=== PATIENT | female | born 1965 | race Caucasian/White ===

== ENCOUNTER 2016-12-18 05:26 | Inpatient (IN) | payer MEDICAID ==
[2016-12-18] MEDS ORDERED: Gabapentin 400 MG Cap PO ONE (05:30)
[2016-12-18] MEDS ORDERED: Scopolamine 1.5 MG Transdermal Patch TRDERM SCH (05:30)
[2016-12-18] MEDS ORDERED: Acetaminophen 500 MG Tab PO ONE (05:30)
[2016-12-18] MEDS ORDERED: Celecoxib 200 MG Cap PO ONE (05:30)
[2016-12-18] MEDS ORDERED: Dextrose 5%-Lactated Ringers 1,000 ML IV SCH (06:30)
[2016-12-18] MEDS ORDERED: cefOXitin 2 GM Vial ONE (06:38)
[2016-12-18] MEDS ORDERED: Albuterol/Ipratropium 3.0-0.5 MG/3 ML Neb Soln NEB ONE (07:00)
[2016-12-18] MEDS ORDERED: Neostigmine Methylsulfate 1 MG/ML 5 ML Syringe ONE (07:10)
[2016-12-18] MEDS ORDERED: Rocuronium 50 MG/5 ML Vial ONE (07:10)
[2016-12-18] MEDS ORDERED: Glycopyrrolate 0.2 MG/ML 5 ML MDV ONE (07:10)
[2016-12-18] MEDS ORDERED: Propofol 200 MG/20 ML SDV ONE (07:10)
[2016-12-18] MEDS ORDERED: Ondansetron 4 MG/2 ML SDV ONE (07:10)
[2016-12-18] MEDS ORDERED: Succinylcholine 200 MG/10 ML MDV ONE (07:10)
[2016-12-18] MEDS ORDERED: Dexamethasone 4 MG/ML SDV ONE (07:10)
[2016-12-18] MEDS ORDERED: Lactated Ringers 1,000 ML ONE (07:10)
[2016-12-18] MEDS ORDERED: cefOXitin 2 GM in Sodium Chloride 0.9% 50 ML IV ONE (07:30)
[2016-12-18] MEDS ORDERED: Ropivacaine 58 ML, Dexamethasone 8 MG, EPINEPHrine 0.4 MG, Sodium Chloride 0.9% 19.6 ML NERVRT SCH ×4 (07:45)
[2016-12-18] MEDS ORDERED: Ketamine 500 MG/5 ML MDV IV ONE (07:45)
[2016-12-18] MEDS ORDERED: Lidocaine 2% 100 MG/5 ML Syringe IVPUSH ONE (07:45)
[2016-12-18] MEDS ORDERED: hydrOXYzine HCl 100 MG/2 ML SDV IM ONE (09:29)
[2016-12-18] MEDS ORDERED: fentaNYL 100 MCG/2 ML SDV IVPUSH ONE (09:29)
[2016-12-18] MEDS ORDERED: Ondansetron 4 MG/2 ML SDV IVPUSH ONE (09:29)
[2016-12-18] MEDS: Lidocaine 0.4%/D5W 2 GM/500 ML BAG IV SCH (11:18)
[2016-12-18] MEDS: cefOXitin 2 GM in Sodium Chloride 0.9% 50 ML IV SCH ×2 (11:45→18:03)
[2016-12-18] MEDS ORDERED: hydrOXYzine HCl 100 MG/2 ML SDV IM PRN (12:00)
[2016-12-18] MEDS ORDERED: diphenhydrAMINE 50 MG/ML SDV IVPUSH PRN (12:00)
[2016-12-18] MEDS ORDERED: Metoclopramide 10 MG/2 ML SDV IVPUSH PRN (12:00)
[2016-12-18] MEDS ORDERED: Albuterol/Ipratropium 3.0-0.5 MG/3 ML Neb Soln INH PRN (12:00)
[2016-12-18] MEDS ORDERED: Labetalol 20 MG/4 ML Syringe IVPUSH PRN (12:00)
[2016-12-18] MEDS ORDERED: Ondansetron 4 MG/2 ML SDV IVPUSH PRN (12:00)
[2016-12-18] MEDS: Dextrose 5%-Lactated Ringers 1,000 ML IV SCH (13:23)
[2016-12-18] MEDS: Gabapentin 250 MG/5 ML Solution ML 470 ML Bottle PO SCH ×2 (13:53→21:28)
[2016-12-18] MEDS: Pantoprazole 40 MG Vial IVPUSH SCH (13:56)
[2016-12-18] MEDS: Albuterol/Ipratropium 3.0-0.5 MG/3 ML Neb Soln INH SCH ×2 (14:30→21:28)
[2016-12-18] MEDS: Acetaminophen Soln 650 MG/20.3 ML UD Cup PO SCH ×2 (15:09→21:29)
[2016-12-18] MEDS: Heparin Sodium 5,000 Units/ML Vial SUBCUT SCH (17:57)
[2016-12-18] MEDS: MVI, Adult with Vitamin K 10 ML, Thiamine 200 MG, Chromium/Copper/Mang/Selen/Zn 1 ML in... IV SCH ×4 (17:57)
[2016-12-19] MEDS: cefOXitin 2 GM in Sodium Chloride 0.9% 50 ML IV SCH ×2 (00:14→06:19)
[2016-12-19] MEDS: Dextrose 5%-Lactated Ringers 1,000 ML IV SCH ×2 (00:15→07:29)
[2016-12-19] MEDS: Lidocaine 0.4%/D5W 2 GM/500 ML BAG IV SCH (00:15)
[2016-12-19] MEDS ORDERED: Iohexol 647 MG/ML 50 ML SDV PO STA (03:21)
[2016-12-19] MEDS: Acetaminophen Soln 650 MG/20.3 ML UD Cup PO SCH ×4 (04:29→21:58)
[2016-12-19] MEDS: Heparin Sodium 5,000 Units/ML Vial SUBCUT SCH ×2 (06:20→17:44)
[2016-12-19] MEDS: Albuterol/Ipratropium 3.0-0.5 MG/3 ML Neb Soln INH SCH ×4 (07:39→20:39)
[2016-12-19] MEDS ORDERED: Simethicone 80 MG Tab.Chew PO PRN (07:49)
[2016-12-19] MEDS ORDERED: Albuterol 8 GM Inhaler INH PRN (07:49)
[2016-12-19] MEDS ORDERED: Ondansetron 4 MG Tab.DIS PO PRN (07:51)
[2016-12-19] MEDS: Celecoxib 200 MG Cap PO SCH (08:45)
[2016-12-19] MEDS: Gabapentin 250 MG/5 ML Solution ML 470 ML Bottle PO SCH ×3 (08:46→20:39)
--- NOTE | 2016-12-19 08:48 | PN ---
DATE OF SERVICE: 12/18/2016 SUBJECTIVE: Georgie is postop day #1. Her pain has been controlled. She has been up ambulating. Vital signs have been stable and upper GI was within normal limits. REVIEW OF SYSTEMS: Remainder of review of systems negative for any pertinent positives and negatives. OBJECTIVE: GENERAL: Georgie Nguyen is a pleasant 51-year-old female. She is alert and orientated. VITAL SIGNS: TPR 99.2, 84, 16, blood pressure 136/76. HEENT: Negative. NECK: Supple. HEART: Regular rate and rhythm. LUNGS: Clear. ABDOMEN: Dressings dry and intact. JULISSA drain x1. Draining a light pink serosanguineous drainage. Abdominal binder is on. EXTREMITIES: Without peripheral edema and SCDs are on. ASSESSMENT: Laparoscopic Luis-en-Y gastric bypass surgery, liver biopsy, repair of diaphragmatic hernia, and excision of mediastinal lipoma for morbid obesity, hepatomegaly, diaphragmatic hernia, and mediastinal lipoma. Date of surgery 12/18/2016. Syl Colunga MD PLAN: 1. Step 2 gastric bypass diet without cereal. 2. May shower. 3. Dressing off. 4. Albuterol inhaler 2 puffs every 4 hours p.r.n. shortness of breath. 5. Estrace 2 mg p.o. daily. 6. Fetzima 120 mg p.o. daily. 7. Simethicone 80 mg p.o. q.4 hours p.r.n. gas pains. 8. Zofran 4 mg ODT q.4 hours p.r.n. nausea. 9. Good pulmonary toilet encouraged. 10.We will evaluate p.r.n. or in a.m. Phyllis Duvall PA-C /[id number]
[2016-12-19] MEDS: FETZIMA 120 MG PO SCH (09:47)
[2016-12-19] MEDS: Estradiol 0.5 MG Tab PO SCH (09:48)
[2016-12-19] MEDS: SCOPOLAMINE PATCH CHECK TOP SCH (09:51)
--- NOTE | 2016-12-19 09:52 | CR ---
UGI wo KUB HISTORY: eval R -Y GBP FINDINGS: After administration of oral contrast, upright views were obtained. Post operative changes gastric bypass. Surgical drains in place. No evidence for leak. Contrast passes freely into proximal small bowel loops. IMPRESSION: No evidence for leak or obstruction.
[2016-12-19] MEDS ORDERED: Dextrose 5%-Lactated Ringers 1,000 ML IV SCH (12:00)
[2016-12-19] MEDS: Pantoprazole 40 MG Vial IVPUSH SCH (13:42)
[2016-12-19] MEDS: MVI, Adult with Vitamin K 10 ML, Thiamine 200 MG, Chromium/Copper/Mang/Selen/Zn 1 ML in... IV SCH ×8 (14:24→17:44)
[2016-12-20] MEDS: Acetaminophen Soln 650 MG/20.3 ML UD Cup PO SCH ×4 (03:52→21:37)
[2016-12-20] MEDS: Heparin Sodium 5,000 Units/ML Vial SUBCUT SCH ×2 (05:20→17:26)
[2016-12-20] MEDS: Albuterol/Ipratropium 3.0-0.5 MG/3 ML Neb Soln INH SCH ×4 (07:27→21:37)
[2016-12-20] MEDS ORDERED: Scopolamine 1.5 MG Transdermal Patch TRDERM SCH (08:00)
[2016-12-20] MEDS ORDERED: Magnesium Hydroxide 400 MG/5 ML Susp 30 ML Cup PO PRN (08:41)
[2016-12-20] MEDS ORDERED: Cyanocobalamin (Vitamin B12) 1,000 MCG/ML SDV IM ONE (09:00)
--- NOTE | 2016-12-20 09:41 | PN ---
DATE OF SERVICE: 12/20/2016 SUBJECTIVE: Georgie is postop day 2 following a Luis-en-Y gastric bypass surgery. She was doing well until this morning, became very nauseated, developed a light headache. She has been an afebrile. Oral intake 10,050, on JULISSA drain put out 75 mL of a light pink serosanguineous drainage. Afebrile. REVIEW OF SYSTEMS: Remainder of review of systems negative for any pertinent positives and negatives. OBJECTIVE: GENERAL: Georgie Nguyen is a pleasant 51-year-old female. VITAL SIGNS: TPR is 97.6, 95, 18, blood pressure 110/66. HEENT : Negative. NECK: Supple. HEART: Regular rate and rhythm. LUNGS: Clear. ABDOMEN: Sutures look good. JULISSA drain intact. EXTREMITIES: Without peripheral edema. ASSESSMENT: Laparoscopic Luis-en-Y gastric bypass surgery, liver biopsy, repair of diaphragmatic hernia, and excision of mediastinal lipoma for morbid obesity, hepatomegaly, diaphragmatic hernia, and mediastinal lipoma. Date of surgery 12/18/2016. Surgeon, Sly Colunga MD. PLAN: 1. Reglan 10 mg IV now. May repeat every 6 hours p.r.n. nausea. 2. Saline lock IV. 3. Claritin 10 mg RediTabs q.24 hours. 4. Good pulmonary toilet encouraged. 5. We will evaluate p.r.n. or in a.m. Phyllis Duvall PA-C /[id number]
[2016-12-20] MEDS: SCOPOLAMINE PATCH CHECK TOP SCH (09:45)
[2016-12-20] MEDS: Gabapentin 250 MG/5 ML Solution ML 470 ML Bottle PO SCH ×3 (10:24→21:37)
[2016-12-20] MEDS: Loratadine 10 MG Tab.DIS PO SCH (10:30)
[2016-12-20] MEDS: Celecoxib 200 MG Cap PO SCH (10:30)
[2016-12-20] MEDS: FETZIMA 120 MG PO SCH (10:31)
[2016-12-20] MEDS: Estradiol 0.5 MG Tab PO SCH (10:31)
[2016-12-20] MEDS: Pantoprazole 40 MG Vial IVPUSH SCH (13:33)
[2016-12-20] MEDS ORDERED: Metoclopramide 10 MG Tab PO PRN (20:13)
[2016-12-20] MEDS ORDERED: diphenhydrAMINE 25 MG Cap PO PRN (20:14)
[2016-12-21] MEDS: Acetaminophen Soln 650 MG/20.3 ML UD Cup PO SCH (04:11)
[2016-12-21] MEDS: Heparin Sodium 5,000 Units/ML Vial SUBCUT SCH (06:05)
[2016-12-21] MEDS: Albuterol/Ipratropium 3.0-0.5 MG/3 ML Neb Soln INH SCH (07:36)
[2016-12-21] MEDS: Celecoxib 200 MG Cap PO SCH (08:50)
[2016-12-21] MEDS: Estradiol 0.5 MG Tab PO SCH (08:51)
[2016-12-21] MEDS: Loratadine 10 MG Tab.DIS PO SCH (08:51)
[2016-12-21] MEDS: FETZIMA 120 MG PO SCH (08:51)
[2016-12-21] MEDS: Gabapentin 250 MG/5 ML Solution ML 470 ML Bottle PO SCH (08:51)
--- NOTE | 2016-12-21 09:40 | DISCH ---
ADMISSION DIAGNOSES: 1. Morbid obesity. 2. BMI 39.3. 3. Obstructive sleep apnea. 4. Anxiety and depression. 5. Low back pain. 6. Arthritis of right knee. DISCHARGE DIAGNOSES: Laparoscopic Luis-en-Y gastric bypass surgery, liver biopsy, repair of diaphragmatic hernia, and excision of mediastinal lipoma for morbid obesity, hepatomegaly, diaphragmatic hernia, and mediastinal lipoma. Date of surgery, 12/18/2016. Surgeon, Sly Colunga MD. HISTORY: Georgie Nguyen is a pleasant 51-year-old female with morbid obesity and increasing comorbidities. After preoperative evaluation and discussion of possible risks and possible complications, she wished to proceed with surgical procedure. HOSPITAL COURSE: Georgie had her surgery on 12/18/2016, she had no operative complications. On postop day #1, her upper GI was normal. She was started on a step-2 gastric bypass diet and started on her home medications, which were appropriate to start. On postop day #2, she had an episode of nausea, which she thought had to do with the gabapentin. She was passing flatus. Fluids were encouraged. She received dietary instructions and on postop day #3, she was ready to be discharged to home. DISCHARGE PHYSICAL EXAMINATION: GENERAL: Georgie Nguyen is a pleasant 51-year-old female. VITAL SIGNS: Height is 5 feet 6.93 inches. Weight is 250 pounds. BMI 39.3. TPR 98.3, 87, 18. Blood pressure 121/68. HEENT: Negative. NECK: Supple. HEART: Regular rate and rhythm. LUNGS: Clear. ABDOMEN: A 4 x 4, over JULISSA drain site. Incisions look good. Abdominal binder has been on. EXTREMITIES: Without peripheral edema. DISPOSITION: Discharged to home. CONDITION: Stable and improving. HOME MEDICATIONS: 1. Celebrex 200 mg p.o. daily for 14 days. 2. Tylenol 650 mg liquid p.o. q.6 hours x2 weeks, 1200 mL. 3. Zofran ODT 4 mg q.4 hours p.r.n. nausea, #30. 4. She is to resume her ProAir inhaler 2 puffs q.4 hours p.r.n. 5. Estradiol 2 mg p.o. daily. 6. Fetzima 120 mg p.o. daily. FOLLOWUP APPOINTMENT: With Phyllis Duvall PA-C, on 12/31/2016 at 10:00 a.m. DISCHARGE DIET: Step-2 gastric bypass diet without cereal. Drink 8 to 10 glasses of water a day. ACTIVITY: No lifting greater than 10 pounds for 2 weeks[address] Driving, do not drive for 1 week. Shower/bathing, may shower. Keep operative site clean and dry. Wear abdominal binder for 2 weeks and then as tolerated. Notify provider if any fever, increased pain, nausea, or vomiting. SPECIAL INSTRUCTION: Use incentive spirometer 10 times every hour while awake for 2 weeks.
--- NOTE | 2016-12-24 11:44 | OR ---
DATE OF PROCEDURE: 12/18/2016 PREOPERATIVE DIAGNOSIS: Morbid obesity. POSTOPERATIVE DIAGNOSES: 1. Morbid obesity. 2. Marked hepatomegaly. 3. Paraesophageal diaphragmatic hernia. 4. Mediastinal lipoma. OPERATIVE PROCEDURE: 1. Laparoscopic Luis-en-Y gastric bypass along with gastroenterostomy (84290). 2. Aureliano-Cut needle liver biopsy (89977). 3. Repair of paraesophageal diaphragmatic hernia (98884). 4. Excision of mediastinal lipoma (52906). ANESTHESIA: General. INDICATION FOR PROCEDURE: This is a 51-year-old female presenting with longstanding morbid obesity and increasingly significant comorbidities. After preoperative evaluation and discussion, she wished to proceed with a gastric bypass procedure. Potential risks of the procedure including bleeding, infection, leaks from various GI tract closures, problems with bowel obstruction over time, as well as possibility of cardiopulmonary, septic, or hemorrhagic complications leading to were discussed, and the patient wishes to proceed. DESCRIPTION OF PROCEDURE: The patient was taken to the operating room, and after general endotracheal anesthesia was induced, bilateral subcostal transverse abdominis plane blocks were placed using the standard solution and with continuous ultrasound monitoring. After this, the abdomen was prepped and draped and an orogastric tube placed. At 15 cm inferior and 5 cm left of xiphoid process, transverse incision was made and the peritoneal cavity entered under direct vision with an Optiview trocar inflated to 15 mmHg pressure with CO2. Laparoscope was then reinserted. No underlying trocar insertion site injuries were seen. Following this, 5 additional trocars were placed across the upper mid abdomen and general exploration was undertaken. The patient was noted to have a marked hepatomegaly with the liver being roughly 2 to 3 times normal and liver grossly fatty infiltrated. Aureliano-Cut needle biopsy was obtained from the left lobe of the liver. Minimal bleeding from the biopsy sites was controlled with electrocautery. The omentum was then divided in the midline up to the level of the transverse colon. This allowed identification of the small bowel at the ligament of Treitz. The small bowel was then traced out 200 cm distal to that point, it was divided transversely with a GRISELDA stapler. The small bowel was then traced out an additional 150 cm where the [id number] enteroenterostomy was accomplished with an internal firing of the Endo-GRISELDA 60 mm stapler. The common opening was then closed transversely with the same stapler, angles anastomosed, and mesenteric defect approximated with some 0 Ethibond stitch along with fibrin sealant, divided end of the Luis limb was then from the mesentery for a few centimeters which allowed an antecolic position of the Luis limb up to the level of the gastroesophageal junction without tension. The liver was then retracted anteriorly. The patient was noted to have an element of a paraesophageal diaphragmatic hernia with prolapse of some perigastric fat and a portion of the fundus in a plane anterior to the course of the esophagus. This was reduced and the peritoneum was then dissected downward. During the course of this dissection, the mediastinal lipoma was encountered and this was excised as well to facilitate the closure of the hernia and anterior repair of the diaphragmatic hernia was then accomplished with 0 Ethibond suture reinforced with PTFE pledgets. The gastrointestinal balloon catheter was then inflated to 15 mL and pulled up snugly against the EG junction. Gastric wall over the apex balloon was then marked with electrocautery, and balloon catheter deflated and pulled up from the esophagus. The lesser omental tissue adjacent to the gastric cardia was then incised allowing dissection behind the stomach at that level. The pouch was initiated with a transverse firing of the GRISELDA stapler at the level of the cauterized greg at the gastric cardia and then completed with 2 additional firings of the GRISELDA stapler up to and through the angle of His. Upon completion of the pouch, both staple lines were noted to be intact. The anvil of a 25 mm EEA stapler was then attached to a Orange sump type tube, latter was brought down through the mouth and taken out through a small opening in the gastric pouch allowing the anvil likewise to be pulled down to within the gastric pouch. The divided end of the Luis limb was then opened and main body of EEA stapler passed several centimeters in the lumen of the small bowel, brought up the anvil and united with it, thus creating the gastrojejunostomy. Upon removal of the stapler, double donuts of mucosa were noted within it and the small bowel was closed off with a vascular staple line. Gastrojejunostomy was then reinforced with some 3-0 Vicryl seromuscular stitch along with fibrin sealant. Leak test was accomplished with an injection of 120 mL of air in the gastric pouch while submerged with an antibiotic-containing saline solution. No leaks were identified. Single [place] drain was then placed adjacent to the gastrojejunostomy and taken up into the splenic fossa. No further problems noted. Trocars were removed and the peritoneal cavity deflated. The incisions were closed with some 4-0 Vicryl stitch and the drain was also affixed with 4-0 Vicryl stitch. The patient was taken to the recovery room in satisfactory condition. There were no evident complications. Sly Colunga MD /[id number]
== END 2016-12-21 09:50 | disposition home or self-care (01) | DRG 403 ==
LOC: JP.MS 05:26 → JP.SDS 05:26 → JP.2SS 09:20 → EDSTATUS 09:30
PROVIDERS: ADMIT Surgery; ATTEND Surgery
PROC: 0D164ZA Bypass Stomach to Jejunum, Percutaneous Endoscopic Approach (ICD-10-PCS; principal; 2016-12-18)
PROC: 0FB24ZX Excision of Left Lobe Liver, Percutaneous Endoscopic Approach, Diagnostic (ICD-10-PCS; 2016-12-18)
PROC: 3E0T3BZ Introduction of Anesthetic Agent into Peripheral Nerves and Plexi, Percutaneous Approach (ICD-10-PCS; 2016-12-18)
PROC: 0WBC4ZX Excision of Mediastinum, Percutaneous Endoscopic Approach, Diagnostic (ICD-10-PCS; 2016-12-18)
DX: E66.01 Morbid (severe) obesity due to excess calories (principal); Z68.39 Body mass index [BMI] 39.0-39.9, adult; R16.0 Hepatomegaly, not elsewhere classified; K76.0 Fatty (change of) liver, not elsewhere classified; K44.9 Diaphragmatic hernia without obstruction or gangrene; D17.4 Benign lipomatous neoplasm of intrathoracic organs; F17.211 Nicotine dependence, cigarettes, in remission; G47.33 Obstructive sleep apnea (adult) (pediatric); F32.9 Major depressive disorder, single episode, unspecified; F41.9 Anxiety disorder, unspecified; M54.5 Low back pain; G89.29 Other chronic pain; Z98.1 Arthrodesis status; M17.11 Unilateral primary osteoarthritis, right knee
CPT/HCPCS: 36415; 74240; 74240-26; 82962; 86850; 86900; 86901; 88304; 88307; 88313; 94640; A9270-GY; C9113; J0171; J0330; J0694; J1100; J1644; J2001; J2405; J2704; J2710; J2765; J2795; J3010; J3410; J3411; J3420; J7030; J7040; J7042; J7050; J7120; J7620; Q9967